=== PATIENT | male | born 1990 | race Asian ===

== ENCOUNTER 2020-01-25 13:47 | Emergency (ER) | payer OTHER ==
--- NOTE | 2020-01-25 14:42 | RAD REPORT ---
EXAM DESCRIPTION: RAD - Chest Single View - 01/25/2020 2:35 pm CLINICAL HISTORY: COUGH Chest pain. COMPARISON: No comparisons FINDINGS: Portable technique limits examination quality. The lungs are grossly clear. The heart is normal in size. No displaced fractures. IMPRESSION: No acute intrathoracic process suspected.
--- NOTE | 2020-01-25 14:53 | EDPHYS ---
Physician Documentation [facility] Name: Jose Byers Age: 29 yrs Sex: Male : 1990 Arrival Date: 01/25/2020 Time: 13:50 Bed 16 Private MD: ED Physician Esvin Enamorado HPI: 01/24 14:50 This 29 yrs old Male presents to ER via Ambulatory with complaints of Headache, Body jr8 Aches. 14:50 Patient stated that he has had headache, body aches, dry cough and runny nose. No jr8 longer has headache but still has the other symptoms. No fevers at this time. No recent travel and has not been around sick contacts that he is aware of . Severity of symptoms: At their worst the symptoms were mild in the emergency department the symptoms are unchanged. The patient has not experienced similar symptoms in the past. The patient has not recently seen a physician. Historical: - Allergies: 13:57 No Known Allergies; ca1 - Home Meds: 13:57 None [Active]; ca1 - PSHx: 13:57 Hip Reconstruction R; ca1 - Immunization history:: Adult Immunizations not up to date, Flu vaccine is not up to date. Patient has never been vaccinated. - Social history:: Smoking status: Patient denies any tobacco usage or history of. ROS: 14:50 Eyes: Negative for injury, pain, redness, and discharge, Neck: Negative for injury, jr8 pain, and swelling, Cardiovascular: Negative for chest pain, palpitations, and edema, Abdomen/GI: Negative for abdominal pain, nausea, vomiting, diarrhea, and constipation, Back: Negative for injury and pain, MS/Extremity: Negative for injury and deformity, Skin: Negative for injury, rash, and discoloration. 14:50 Constitutional: Positive for body aches. 14:50 ENT: Positive for rhinorrhea, Negative for drainage from ear(s), ear pain, sore throat, difficulty swallowing, difficulty handling secretions, hoarseness. 14:50 Respiratory: Positive for cough, Negative for shortness of breath, sputum production, wheezing. 14:50 Neuro: Positive for headache. Exam: 14:50 Eyes: Pupils equal round and reactive to light, extra-ocular motions intact. Lids and jr8 lashes normal. Conjunctiva and sclera are non-icteric and not injected. Cornea within normal limits. Periorbital areas with no swelling, redness, or edema. ENT: Nares patent. No nasal discharge, no septal abnormalities noted. Tympanic membranes are normal and external auditory canals are clear. Oropharynx with no redness, swelling, or masses, exudates, or evidence of obstruction, uvula midline. Mucous membranes moist. Neck: Trachea midline, no thyromegaly or masses palpated, and no cervical lymphadenopathy. Supple, full range of motion without nuchal rigidity, or vertebral point tenderness. No Meningismus. Cardiovascular: Regular rate and rhythm with a normal S1 and S2. No gallops, murmurs, or rubs. Normal PMI, no JVD. No pulse deficits. Respiratory: Lungs have equal breath sounds bilaterally, clear to auscultation and percussion. No rales, rhonchi or wheezes noted. No increased work of breathing, no retractions or nasal flaring. Abdomen/GI: Soft, non-tender, with normal bowel sounds. No distension or tympany. No guarding or rebound. No evidence of tenderness throughout. Back: No spinal tenderness. No costovertebral tenderness. Full range of motion. Skin: Warm, dry with normal turgor. Normal color with no rashes, no lesions, and no evidence of cellulitis. MS/ Extremity: Pulses equal, no cyanosis. Neurovascular intact. Full, normal range of motion. Neuro: Awake and alert, GCS 15, oriented to person, place, time, and situation. Cranial nerves II-XII grossly intact. Motor strength 5/5 in all extremities. Sensory grossly intact. Cerebellar exam normal. Normal gait. Vital Signs: 13:52 BP 129 / 99; Pulse 105; Resp 17 S; Temp 97(TE); Pulse Ox 98% on R/A; Weight 80 kg (R); ca1 Height 5 ft. 8 in. (172.72 cm); 15:28 Pulse 88; Resp 18; Pulse Ox 99% on R/A; kl 13:52 Body Mass Index 26.12 (80.00 kg, 172.72 cm) ca1 MDM: 14:05 Patient medically screened. jr8 14:50 Data reviewed: vital signs, nurses notes, lab test result(s), radiologic studies, plain jr8 films, and as a result, I will discharge patient. Data interpreted: Pulse oximetry: on room air is 98 %. Interpretation: normal. Counseling: I had a detailed discussion with the patient and/or guardian regarding: the historical points, exam findings, and any diagnostic results supporting the discharge/admit diagnosis, lab results, radiology results, the need for outpatient follow up, a family practitioner, to return to the emergency department if symptoms worsen or persist or if there are any questions or concerns that arise at home. 01/24 14:05 Order name: Influenza Screen (a \T\ B); Complete Time: 14:49 [facility] 01/24 14:05 Order name: Strep; Complete Time: 14:49 [facility] 01/24 14:05 Order name: Urine Microscopic Only; Complete Time: 20: [facility] 01/24 14:05 Order name: XRAY Chest (1 view); Complete Time: 20: [facility] 01/24 14:30 Order name: Urine Dipstick--Ancillary (enter results); Complete Time: 20:02 01/24 14:47 Order name: Throat Culture [facility] 01/24 14:05 Order name: Urine Dipstick-Ancillary (obtain specimen) [facility] Administered Medications: No medications were administered Disposition: 01/25 07:07 Co-signature as Attending Physician, Esvin Enamorado MD I agree with the assessment and kdr plan of care. Disposition: 01/25/20 14:52 Discharged to Home. Impression: Acute upper respiratory infection, unspecified. - Condition is Stable. - Discharge Instructions: Upper Respiratory Infection, Adult. - Prescriptions for Prednisone 20 mg Oral Tablet - take 1 tablet by ORAL route once daily for 5 days; 5 tablet. - Medication Reconciliation Form, Thank You Letter, Antibiotic Education, Prescription Opioid Use form. - Follow up: Private Physician; When: 2 - 3 days; Reason: Recheck today's complaints, Continuance of care, Re-evaluation by your physician. - Problem is new. - Symptoms have improved. Signatures: Dispatcher [employer] Clementina Aguilar RN RN kl Rittger, Kevin, MD MD kdr Roszak, Josh, PA PA jr8 Ernestine Workman RN RN ca1 Corrections: (The following items were deleted from the chart) 01/24 14:29 14:05 Urine Test ordered. jr8 ls4 15:30 14:52 01/25/2020 14:52 Discharged to Home. Impression: Acute upper respiratory kl infection, unspecified. Condition is Stable. Forms are Medication Reconciliation Form, Thank You Letter, Antibiotic Education, Prescription Opioid Use. Follow up: Private Physician; When: 2 - 3 days; Reason: Recheck today's complaints, Continuance of care, Re-evaluation by your physician. Problem is new. Symptoms have improved. jr8
--- NOTE | 2020-01-25 14:53 | ER ---
Nurse's Notes [facility] Name: Jose Byers Age: 29 yrs Sex: Male : 1990 Arrival Date: 01/25/2020 Time: 13:50 Bed 16 Private MD: Diagnosis: Acute upper respiratory infection, unspecified Presentation: 01/24 13:52 Chief complaint: Patient states: Headache and body pains for 2-3 days. Pt states, ca1 "there is no headaches anymore but just body pains". Reports dry cough. Denies nasal congestion and fever. Coronavirus screen: Patient reports a cough. Patient denies shortness of breath or difficulty breathing. Patient denies measured and/or subjective temperature greater than 100.4F. Patient denies travel on a cruise ship or to a country the [facility] currently lists as an affected area. Patient denies contact with known and/or suspected case of COVID-19. Ebola Screen: Patient negative for fever greater than or equal to 101.5 degrees Fahrenheit, and additional compatible Ebola Virus Disease symptoms Patient denies exposure to infectious person. Patient denies travel to an Ebola-affected area in the 21 days before illness onset. No symptoms or risks identified at this time. Initial Sepsis Screen: Does the patient meet any 2 criteria? No. Patient's initial sepsis screen is negative. Does the patient have a suspected source of infection? No. Patient's initial sepsis screen is negative. Risk Assessment: Do you want to hurt yourself or someone else? Patient reports no desire to harm self or others. Onset of symptoms was January 25, 2020. 13:52 Method Of Arrival: Ambulatory ca1 13:52 Acuity: RADHAMES 3 ca1 Historical: - Allergies: 13:57 No Known Allergies; ca1 - Home Meds: 13:57 None [Active]; ca1 - PSHx: 13:57 Hip Reconstruction R; ca1 - Immunization history:: Adult Immunizations not up to date, Flu vaccine is not up to date. Patient has never been vaccinated. - Social history:: Smoking status: Patient denies any tobacco usage or history of. Screenin:28 Abuse screen: Denies threats or abuse. Nutritional screening: No deficits noted. kl Tuberculosis screening: No symptoms or risk factors identified. Fall Risk None identified. Assessment: 15:27 General: Appears in no apparent distress. Behavior is calm, cooperative. Pain: Denies kl pain. Neuro: No deficits noted. Vital Signs: 13:52 BP 129 / 99; Pulse 105; Resp 17 S; Temp 97(TE); Pulse Ox 98% on R/A; Weight 80 kg (R); ca1 Height 5 ft. 8 in. (172.72 cm); 15:28 Pulse 88; Resp 18; Pulse Ox 99% on R/A; kl 13:52 Body Mass Index 26.12 (80.00 kg, 172.72 cm) ca1 ED Course: 13:50 Patient arrived in ED. ag5 13:52 Arm band placed on right wrist. ca1 13:56 Triage completed. ca1 14:04 Etienne Agosto PA is PHCP. jr8 14:04 Esvin Enamorado MD is Attending Physician. jr8 14:29 Rima Barros, RN is Primary Nurse. ls4 14:43 XRAY Chest (1 view) In Process Unspecified. EDMS Administered Medications: No medications were administered Outcome: 14:52 Discharge ordered by . [facility] 15:28 Discharged to home ambulatory. 15:28 Condition: good 15:28 Discharge instructions given to patient, Instructed on discharge instructions, follow up and referral plans. medication usage, safety practices, Demonstrated understanding of instructions, follow-up care, medications, HAND HYGIENE AND SOCIAL DISTANCING 15:30 Patient left the ED. Signatures: Dispatcher [employer] EDMS Clementina Dyer RN RN kl Roszak, Josh, PA PA [facility] Rima Barros RN RN 4 Ernestine Workman RN RN [facility] Mando Rodriges ag5 Corrections: (The following items were deleted from the chart) 13:58 13:52 BP 129 / 9; Pulse 115bpm; Resp 17bpm; Spontaneous; Pulse Ox 98% RA; Temp 97F ca1 Temporal; 80 kg Reported; Height 5 ft. 8 in.; BMI: 26.1; ca1 14:05 13:52 Acuity: RADHAMES 4 ca1 ca1
[2020-01-25 15:28] LABS: Urine Blood NEGATIVE (NEG); Urine Glucose NEGATIVE (NEG); Urine Protein NEGATIVE (NEG); Urine Specific Gravity 1.015 (1.005-1.030)
[2020-01-25 15:54] LABS: Urine Bacteria <20 /HPF (NONE SEEN); Urine Culture Reflex Order NOT NEEDED; Urine RBC <5 /HPF (NONE SEEN)
[2020-01-25 16:05] VITALS: O2SAT 99
[2020-01-25 16:39] VITALS: BP 129/99; TEMP 97
== END 2020-01-25 15:30 | disposition home or self-care (01) ==
LOC: ER 13:47
DX: J06.9 Acute upper respiratory infection, unspecified (principal)
CPT/HCPCS: 71045; 81003; 81015; 87070; 87081; 87804; 99283

== ENCOUNTER 2021-01-18 17:20 | Emergency (ER) | payer OTHER ==
--- NOTE | 2021-01-18 20:37 | RAD REPORT ---
EXAM DESCRIPTION: RAD - Hip Right 2 View - 01/18/2021 8:04 pm CLINICAL HISTORY: PAIN COMPARISON: No comparisons FINDINGS: Very advanced for age arthritic changes affect the right hip. The proximal right femur hea d and neck junction has an abnormal appearance, likely related to prior trauma.
--- NOTE | 2021-01-18 20:38 | RAD REPORT ---
EXAM DESCRIPTION: RAD - Pelvis - 01/18/2021 8:04 pm CLINICAL HISTORY: PAIN COMPARISON: No comparisons FINDINGS: Very advanced for age arthritic changes involve the right hip. Ultra matted changes involv ing the head and neck junction of the proximal right femur also seen. Left hip appears intact. No pel saroj fracture evident.
--- NOTE | 2021-01-18 20:45 | RAD REPORT ---
EXAM DESCRIPTION: US - Extremity Venous Uni Ltd - 01/18/2021 8:36 pm CLINICAL HISTORY: PAIN Leg swelling and edema. COMPARISON: No comparisons FINDINGS: Right lower extremity venous system was interrogated with Doppler technique. Normal flow, compressibility and augmentation was noted. There is no DVT present. IMPRESSION: No evidence of right lower extremity deep venous thrombosis.
--- NOTE | 2021-01-18 20:46 | RAD REPORT ---
EXAM DESCRIPTION: US - Lower Extremity Artery Uni Ltd - 01/18/2021 8:36 pm CLINICAL HISTORY: PAIN COMPARISON: No comparisons FINDINGS: Doppler interrogation of the right lower extremity arterial system was performed. Normal t riphasic waveforms are seen throughout the right lower extremity arterial system. No stenosis or occl usion. IMPRESSION: No flow abnormality detected.
--- NOTE | 2021-01-18 21:18 | ER ---
Nurse's Notes [facility] Name: Jose Byers Age: 30 yrs Sex: Male : 1990 Arrival Date: 01/18/2021 Time: 17:23 Bed 16 Private MD: Diagnosis: Arthritis-Right Hip Presentation: 01/18 17:40 Chief complaint: Patient states: R hip pain, R foot swollen and bluish started this ca1 Wednesday. I had a R hip bone fracture 15 years ago, visited my doctor yesterday. Today, R foot more swollen and bluish. Coronavirus screen: Client denies travel out of the [place] in the last 14 days. At this time, the client does not indicate any symptoms associated with coronavirus-19. Ebola Screen: Patient negative for fever greater than or equal to 101.5 degrees Fahrenheit, and additional compatible Ebola Virus Disease symptoms Patient denies exposure to infectious person. Patient denies travel to an Ebola-affected area in the 21 days before illness onset. No symptoms or risks identified at this time. Initial Sepsis Screen: Does the patient meet any 2 criteria? No. Patient's initial sepsis screen is negative. Does the patient have a suspected source of infection? No. Patient's initial sepsis screen is negative. Risk Assessment: Do you want to hurt yourself or someone else? Patient reports no desire to harm self or others. Onset of symptoms was January 18, 2021. 17:40 Method Of Arrival: Ambulatory ca1 17:40 Acuity: RADHAMES 3 ca1 Triage Assessment: 21:24 General: Behavior is calm. zb Historical: - Allergies: 17:43 No Known Allergies; ca1 - Home Meds: 17:43 None [Active]; ca1 - PMHx: 17:43 None; ca1 - PSHx: 17:43 Hip Reconstruction R; ca1 - Immunization history:: Flu vaccine is not up to date. - Social history:: Smoking status: Patient denies any tobacco usage or history of. Screenin:00 Abuse screen: Denies threats or abuse. Denies injuries from another. Nutritional zb screening: No deficits noted. Tuberculosis screening: No symptoms or risk factors identified. Fall Risk None identified. Assessment: 19:12 General: Appears in no apparent distress. uncomfortable. Pain: Complains of pain in zb right inguinal area and right hip Pain does not radiate. Pain currently is 7 out of 10 on a pain scale. Quality of pain is described as aching, dull, pressure. Neuro: Level of Consciousness is awake, alert, obeys commands, Oriented to person, place, time. 19:12 Cardiovascular: Denies chest pain, Capillary refill < 3 seconds Patient's skin is warm zb and dry. Respiratory: Airway is patent Respiratory effort is even, unlabored, Respiratory pattern is regular, symmetrical. GI: No signs and/or symptoms were reported involving the gastrointestinal system. : No signs and/or symptoms were reported regarding the genitourinary system. EENT: No signs and/or symptoms were reported regarding the EENT system. Derm: Skin is intact, is healthy with good turgor, Skin is dry, Skin is normal, Skin temperature is warm. Musculoskeletal: Range of motion: intact in all extremities. 20:21 Reassessment: Patient appears in no apparent distress at this time. Patient and/or zb family updated on plan of care and expected duration. Pain level reassessed. Patient is alert, oriented x 3, equal unlabored respirations, skin warm/dry/pink. 21:21 Reassessment: Patient appears in no apparent distress at this time. Patient and/or zb family updated on plan of care and expected duration. Pain level reassessed. Patient is alert, oriented x 3, equal unlabored respirations, skin warm/dry/pink. Vital Signs: 17:40 BP 118 / 83; Pulse 91; Resp 16 S; Temp 98.1(TE); Pulse Ox 99% on R/A; Weight 81.65 kg ca1 (R); Height 6 ft. 0 in. (182.88 cm) (R); Pain 9/10; 20:00 BP 120 / 80; Pulse 89; Resp 16; Pulse Ox 100% on R/A; zb 21:21 BP 112 / 76; Pulse 89; Resp 16; Pulse Ox 99% ; zb 17:40 Body Mass Index 24.41 (81.65 kg, 182.88 cm) ca1 ED Course: 17:23 Patient arrived in ED. am2 17:42 Triage completed. ca1 17:43 Arm band placed on right wrist. ca1 18:58 Bailee Romero RN is Primary Nurse. zb 19:01 Prieto Sparks MD is Attending Physician. [facility] 20:00 Patient has correct armband on for positive identification. Placed in gown. Bed in low zb position. Call light in reach. Pulse ox on. NIBP on. Door closed. Noise minimized. 20:04 Hip Right 2 View XRAY In Process Unspecified. EDMS 20:04 Pelvis XRAY In Process Unspecified. EDMS 20:34 Ultrasound completed. Patient tolerated well. Notified ED Physician ALEKSANDR. sg3 20:36 US Extremity Venous Unilateral Ltd In Process Unspecified. EDMS 20:36 US LE Artery Uni Ltd In Process Unspecified. EDMS 21:16 Naldo Dimas MD is Referral Physician. [facility] 21:24 No provider procedures requiring assistance completed. Patient did not have IV access zb during this emergency room visit. Administered Medications: 21:21 Drug: Ibuprofen 800 mg Route: PO; zb 21:22 Follow up: Response: Medication administered at discharge. zb Outcome: 21:17 Discharge ordered by MD. [facility] 21:24 Discharged to home ambulatory. zb 21:24 Condition: stable 21:24 Discharge instructions given to patient, Instructed on discharge instructions, follow up and referral plans. medication usage, Demonstrated understanding of instructions, follow-up care, medications, Prescriptions given X 1. 21:25 Patient left the ED. zb Signatures: Dispatcher [employer] EDNE Reyna Salinas Flakita Linton sg3 Ernestine Workmna, RHONDA ELLIS ca1 Prieto Sparks MD MD [facility] Bailee Romero RN RN zb Corrections: (The following items were deleted from the chart) 21:22 19:12 Neuro: Level of Consciousness is awake, alert, obeys commands, Oriented to zb person, place, time, zb 23:59 21:21 Response: Medication administered at discharge. zb zb
--- NOTE | 2021-01-18 21:18 | EDPHYS ---
Physician Documentation [facility] Name: Jose Byers Age: 30 yrs Sex: Male : 1990 Arrival Date: 01/18/2021 Time: 17:23 Bed 16 Private MD: ED Physician Prieto Sparks HPI: 01/18 19:46 This 30 yrs old Male presents to ER via Ambulatory with complaints of Hip Pain, mh7 Feet Swelling. 19:46 The patient presents with pain, that is acute. The complaints affect the right hip. mh7 Context: The problem was sustained at an unknown site, resulted from an unknown cause, the patient can fully bear weight, the patient is able to ambulate, with mild difficulty, Problem is a result from a previous injury: Yes. 19:48 Onset: The symptoms/episode began/occurred 5 day(s) ago. Modifying factors: The mh7 symptoms are alleviated by nothing. the symptoms are aggravated by weight bearing. Associated signs and symptoms: Pertinent positives: swelling, blue discoloration on foot, Pertinent negatives calf tenderness, fever, nausea, numbness, rash, tingling, vomiting, warmth, weakness. Treatment prior to arrival includes: no previous treatment. Severity of symptoms: At their worst the symptoms were moderate, 2 day(s) ago, in the emergency department the symptoms are unchanged. The patient has been recently seen by a physician: yesterday. States that he has had right hip pain for the past 5 days. He had a right hip fracture 15 years ago and had surgery. Also has had a blue discoloration on top area of foot. Denies any recent injuries, fever, chest pain, SOB, abdominal pain, nausea, vomiting, numbness/tingling, or weakness. He saw a doctor yesterday about this problem.. Historical: - Allergies: 17:43 No Known Allergies; ca1 - Home Meds: 17:43 None [Active]; ca1 - PMHx: 17:43 None; ca1 - PSHx: 17:43 Hip Reconstruction R; ca1 - Immunization history:: Flu vaccine is not up to date. - Social history:: Smoking status: Patient denies any tobacco usage or history of. ROS: 19:48 Constitutional: Negative for fever, chills, and weight loss, Eyes: Negative for injury, mh7 pain, redness, and discharge, ENT: Negative for injury, pain, and discharge, Neck: Negative for injury, pain, and swelling, Cardiovascular: Negative for chest pain, palpitations, and edema, Respiratory: Negative for shortness of breath, cough, wheezing, and pleuritic chest pain, Abdomen/GI: Negative for abdominal pain, nausea, vomiting, diarrhea, and constipation, Back: Negative for injury and pain, : Negative for injury, bleeding, discharge, and swelling, Neuro: Negative for headache, weakness, numbness, tingling, and seizure, Psych: Negative for depression, anxiety, suicide ideation, homicidal ideation, and hallucinations, Allergy/Immunology: Negative for hives, rash, and allergies, Endocrine: Negative for neck swelling, polydipsia, polyuria, polyphagia, and marked weight changes. Exam: 19:48 Constitutional: This is a well developed, well nourished patient who is awake, alert, mh7 and in no acute distress. Head/Face: Normocephalic, atraumatic. Eyes: Pupils equal round and reactive to light, extra-ocular motions intact. Lids and lashes normal. Conjunctiva and sclera are non-icteric and not injected. Cornea within normal limits. Periorbital areas with no swelling, redness, or edema. Neck: Trachea midline, no thyromegaly or masses palpated, and no cervical lymphadenopathy. Supple, full range of motion without nuchal rigidity, or vertebral point tenderness. No Meningismus. Chest/axilla: Normal chest wall appearance and motion. Nontender with no deformity. No lesions are appreciated. Cardiovascular: Regular rate and rhythm with a normal S1 and S2. No gallops, murmurs, or rubs. Normal PMI, no JVD. No pulse deficits. Respiratory: Lungs have equal breath sounds bilaterally, clear to auscultation and percussion. No rales, rhonchi or wheezes noted. No increased work of breathing, no retractions or nasal flaring. Abdomen/GI: Soft, non-tender, with normal bowel sounds. No distension or tympany. No guarding or rebound. No evidence of tenderness throughout. Back: No spinal tenderness. No costovertebral tenderness. Full range of motion. Skin: Warm, dry with normal turgor. Normal color with no rashes, no lesions, and no evidence of cellulitis. 19:48 Neuro: Awake and alert, GCS 15, oriented to person, place, time, and situation. Cranial nerves II-XII grossly intact. Motor strength 5/5 in all extremities. Sensory grossly intact. Cerebellar exam normal. Normal gait. Psych: Awake, alert, with orientation to person, place and time. Behavior, mood, and affect are within normal limits. 19:48 Musculoskeletal/extremity: Extremities: noted in the right hip and right inguinal area: pain, tenderness, noted in the right foot: varicose veins dorsal right foot without swelling, tenderness, or erythema, ROM: intact in all extremities, Circulation is intact in all extremities. Pulses: are normal with no appreciated deficits, Perfusion: the patient is normally perfused throughout, Perfusion: the extremity is normally perfused throughout, Calf tenderness, is absent, Edema, is not appreciated, Sensation intact. Compartment Syndrome exam of affected extremity: is normal. no numbness, no tingling, no sensation deficit, no palor, no weak pulses, Joints: the right hip displays tenderness, Weight bearing: able to fully bear weight, mild limp, Tendon exam: specific tendon testing normal through active and passive range of motion DVT Exam: no swelling, negative Homans' sign noted on exam, no appreciated bluish discoloration, no erythema, no increased warmth, Calves: are non-tender, have equal circumference. Vital Signs: 17:40 BP 118 / 83; Pulse 91; Resp 16 S; Temp 98.1(TE); Pulse Ox 99% on R/A; Weight 81.65 kg ca1 (R); Height 6 ft. 0 in. (182.88 cm) (R); Pain 9/10; 20:00 BP 120 / 80; Pulse 89; Resp 16; Pulse Ox 100% on R/A; zb 21:21 BP 112 / 76; Pulse 89; Resp 16; Pulse Ox 99% ; zb 17:40 Body Mass Index 24.41 (81.65 kg, 182.88 cm) ca1 MDM: 21:14 Differential diagnosis: closed fracture, tendonitis, Musculoskeletal pain, DVT, mh7 Arterial Occlusion. Data reviewed: vital signs, nurses notes, radiologic studies, plain films, ultrasound. Data interpreted: Pulse oximetry: on room air is 99 %. Interpretation: normal. Counseling: I had a detailed discussion with the patient and/or guardian regarding: the historical points, exam findings, and any diagnostic results supporting the discharge/admit diagnosis, radiology results, the need for outpatient follow up, a orthopedic surgeon, to return to the emergency department if symptoms worsen or persist or if there are any questions or concerns that arise at home. 21:17 Patient medically screened. [facility] 01/18 19:18 Order name: Hip Right 2 View XRAY; Complete Time: 20:56 [facility] 01/18 19:18 Order name: Pelvis XRAY; Complete Time: 20:56 [facility] 01/18 19:18 Order name: Extremity Venous Unilateral Ltd; Complete Time: 20:56 [facility] 01/18 19:18 Order name: LE Artery Uni Ltd; Complete Time: 20:56 [facility] Administered Medications: 21:21 Drug: Ibuprofen 800 mg Route: PO; zb 21:22 Follow up: Response: Medication administered at discharge. zb Disposition: 01/18/21 21:17 Discharged to Home. Impression: Arthritis-Right Hip. - Condition is Stable. - Discharge Instructions: Arthritis, [id number]. - Prescriptions for Ibuprofen 800 mg Oral Tablet - take 1 tablet by ORAL route every 8 hours As needed take with food; 15 tablet. - Medication Reconciliation Form, Thank You Letter, Antibiotic Education, Prescription Opioid Use form. - Follow up: Naldo Dimas MD; When: 2 - 3 days; Reason: Worsening of condition, Recheck today's complaints. - Problem is an ongoing problem. - Symptoms have improved. Signatures: Dispatcher [employer] EDMS Ernestine Workman RN RN [facility] Prieto Sparks MD MD [facility] Bailee Romero RN RN zb Corrections: (The following items were deleted from the chart) 21:25 21:17 01/18/2021 21:17 Discharged to Home. Impression: Arthritis-Right Hip. Condition zb is Stable. Forms are Medication Reconciliation Form, Thank You Letter, Antibiotic Education, Prescription Opioid Use. Follow up: Naldo Dimas; When: 2 - 3 days; Reason: Worsening of condition, Recheck today's complaints. Problem is an ongoing problem. Symptoms have improved. [facility]
[2021-01-18 21:28] VITALS: TEMP 98.1
[2021-01-18 21:31] VITALS: BP 112/76; O2SAT 99
[2021-01-18] MEDS ORDERED: IBUPROFEN 400 MG TAB ONE (21:35)
== END 2021-01-18 21:25 | disposition home or self-care (01) ==
LOC: ER 17:20
DX: M16.11 Unilateral primary osteoarthritis, right hip (principal)
CPT/HCPCS: 72170; 93926; 93971; 99284